=== PATIENT | male | born 1995 | race Caucasian/White ===

== ENCOUNTER 2018-11-14 22:12 | Emergency (ER) | payer OTHER ==
[2018-11-14 22:22] VITALS: BP 154/98
[2018-11-14] MEDS ORDERED: NORMAL SALINE 1000 ML 1,000 ML IV ONE (23:02)
[2018-11-14] MEDS ORDERED: ONDANSETRON HCL INJ/PF 4 MG/2 ML SDV IV ONE (23:02)
[2018-11-14] MEDS ORDERED: MORPHINE SULFATE 10 MG/ML INJ IV ONE (23:02)
--- NOTE | 2018-11-14 23:10 | ER Document Report ---
ED General - General Chief Complaint: Abdominal Pain Stated Complaint: STOMACH PAIN Time Seen by Provider: 11/14/18 22:57 Primary Care Provider: MOSES REES NP [Primary Care Provider] - 11/17/18 DANNY ALFORD MD [NO LOCAL MD] - Follow up as needed Notes: Patient is a pleasant 23-year-old male presents with complaint of left flank pain started approximately 2 hours ago. Some nausea and vomiting. Says pain stays in left flank. Nothing seems make it better or worse. No dysuria. No diarrhea. No fevers. He is never had any pain like this before. He is little hypertensive in triage. No previous history of kidney stones. No recent trauma or injuries. TRAVEL OUTSIDE OF THE [place] IN LAST 30 DAYS: No - Related Data Allergies/Adverse Reactions: No Known Allergies Allergy (Verified 11/14/18 23:17) Past Medical History - Social History Smoking Status: Never Smoker Frequency of alcohol use: None Drug Abuse: None Family History: Reviewed & Not Pertinent Psychiatric Medical History: Reports: Hx Depression - Immunizations Immunizations up to date: Yes Hx Diphtheria, Pertussis, Tetanus Vaccination: No Review of Systems - Review of Systems Notes: My Normal Review Basic REVIEW OF SYSTEMS: CONSTITUTIONAL : Denies fever, chills, or sweats. Denies recent illness. CARDIOVASCULAR: Denies chest pain. RESPIRATORY: Denies cough, cold, or chest congestion. Denies shortness of breath, difficulty breathing, or wheezing. GASTROINTESTINAL: Flank pain. Vomiting. No diarrhea. GENITOURINARY: Denies difficulty urinating, painful urination, burning, frequency, or blood in urine. MUSCULOSKELETAL: No pain in the back. SKIN: Denies rash or skin lesions. NEUROLOGICAL: Denies altered mental status or loss of consciousness. Denies headache. Denies weakness or paralysis or loss of use of either side. Denies problems with gait or speech. Denies sensory or motor loss. ALL OTHER SYSTEMS REVIEWED AND NEGATIVE. Physical Exam - Vital signs Vitals: Temp Pulse Resp BP 98.1 F 74 20 154/98 H 11/14/18 22:20 11/14/18 22:20 11/14/18 22:20 11/14/18 22:20 - Notes Notes: General Appearance: Well nourished, alert, cooperative, no acute distress, moderate obvious discomfort. She is holding left side. Vitals: reviewed, See vital signs table. Head: no swelling or tenderness to the head Eyes: PERRL, EOMI, Conjuctiva clear Mouth: No decreasd moisture Lungs: No wheezing, No rales, No rhonci, No accessory muscle use, good air exchange bilaterally. Heart: Normal rate, Regular rythm, No murmur, no rub Abdomen: Normal BS, soft, No rigidity, no reproducible tenderness palpation of the abdomen., No guarding, no rebound, no abdominal masses, no organomegaly Extremities: good pulses in all extremities, no swelling or tenderness in the extremities, no edema. Skin: warm, dry, appropriate color, no rash Neuro: speech clear, oriented x 3, normal affect, responds appropriately to questions. Course - Re-evaluation Re-evalutation: 11/14/18 23:09 I suspect patient most likely has a kidney stone based on location of pain and vomiting and sudden onset. He is hypertensive which I suspect is related to the pain. I think is less likely that he has aortic dissection or aortic injury especially since patient does not have any midline pain, no pain into his back, and his pain is not made worse with palpation of the abdomen. Will have patient undergo CT scan as well as give him medicines for pain and vomiting. 11/15/18 00:24 Patient's pain is currently under control. He is feeling much improved. I am awaiting the results of urinalysis before disposition. 11/15/18 00:58 Patient's pain is much improved. He looks well. I feel he is safe to be discharged home. He has no signs of infection in his urine. Informed him to return to ER immediately if he has intractable pain, intractable vomiting, or signs of infection his urine. I encouraged him to follow-up with his doctor this week to have recheck his kidney function. Also encouraged him to follow-up with urologist if he is not passed a stone or still having pain after 3 days. Patient agrees with plan will be discharged home. Dictation of this chart was performed using voice recognition software; therefore, there may be some unintended grammatical errors. - Vital Signs Vital signs: Temp Pulse Resp BP Pulse Ox 98.1 F 74 20 154/98 H 11/14/18 22:20 11/14/18 22:20 11/14/18 22:20 05/25/19 22:20 - Laboratory Result Diagrams: 11/14/18 23:28 11/14/18 23:28 Laboratory results interpreted by me: 11/14/18 11/14/18 11/15/18 23:28 23:28 00:00 WBC 17.5 H Seg Neutrophils % 79.1 H Absolute Neutrophils 13.9 H Creatinine 1.43 H Glucose 121 H Urine Protein 100 H Urine Blood LARGE H Discharge - Discharge Clinical Impression: Kidney stone on left side High blood pressure Qualifiers: Hypertension type: unspecified Qualified Code(s): I10 - Essential (primary) hypertension Condition: Good Disposition: HOME, SELF-CARE Additional Instructions: You have a kidney stone on CT scan. This is what is causing your left-sided pain as well as your vomiting. I have prescribed you a medication called [place]. Please be aware that [place] does have Tylenol (acetaminophen) in it. Please make sure you do not take more than 4000 mg of acetaminophen a day. Do not drive or care for children after you have taken this medication they will make you sleepy and sometimes impair judgment. I have also prescribed you a medication called Zofran. Zofran is a medicine that helps with nausea and vomiting. Currently you do not have signs of infection in your urine. Your blood work shows just mild renal insufficiency. This is likely from where the kidney is slightly obstructed from the stone. This typically improves with passage of the stone. We would suggest that you follow-up with your doctor within a week to have your kidney function rechecked to make sure that it continues to not worsen in any way. If you have not passed the stone or are still having pain after 3 days and he should call the urologist, Dr. Alford, on Friday to make a follow-up appointment. Please return to the ER immediately if you have intractable pain, recurrent vomiting, fevers, or feel that you are worsening any way. Your blood pressure is high today. This also is likely related to pain and stress from passing a stone. Please have your doctor recheck your blood pressure when you follow-up with her this coming week. Prescriptions: Hydrocodone/Acetaminophen [[place] 5-325 mg Tablet] 1 tab PO Q4 PRN #16 tablet PRN Reason: For Breakthrough Pain Ondansetron [Zofran Odt 4 mg Tablet] 1 tab PO Q4H PRN #15 tab.rapdis PRN Reason: For Nausea/Vomiting Referrals: MOSES REES, RUG SIZER [Primary Care Provider] - 11/17/18 DANNY ALFORD MD [NO LOCAL MD] - Follow up as needed
[2018-11-14 23:34] LABS: ABSOLUTE EOSINOPHILS # (AUTO) 0.1 10^3/uL (0.0-0.6); ABSOLUTE LYMPHOCYTES (AUTO) 2.5 10^3/uL (0.5-4.7); ABSOLUTE NEUT (AUTO) 13.9 10^3/uL (1.7-8.2); BASOPHILS % (AUTO) 0.3 % (0-2); EOSINOPHILS % (AUTO) 0.4 % (0-6); HEMATOCRIT 45.6 % (37.9-51.0); HEMOGLOBIN 15.3 g/dL (13.5-17.0); LYMPHOCYTES % (AUTO) 14.5 % (13-45); MEAN CORPUSCULAR HEMOGLOBIN 29.4 pg (27.0-33.4); MEAN CORPUSCULAR HGB CONC 33.7 g/dL (32.0-36.0); MEAN CORPUSCULAR VOLUME 87 fl (80-97); MONOCYTES % (AUTO) 5.7 % (3-13); PLATELET COUNT 215 10^3/uL (150-450); RED BLOOD COUNT 5.22 10^6/uL (4.35-5.55); RED CELL DISTRIBUTION WIDTH 12.7 % (11.5-14.0); SEGMENTED NEUTROPHILS % (AUTO) 79.1 % (42-78); TOTAL CELLS COUNTED % (AUTO) 100 %; WHITE BLOOD COUNT 17.5 10^3/uL (4.0-10.5)
--- NOTE | 2018-11-14 23:34 | RADIOLOGY REPORT (SQ) ---
CT ABDOMEN PELVIS WITHOUT IV CONTRAST HISTORY: Left flank pain. COMPARISON: None. TECHNIQUE: CT scan of the abdomen and pelvis was performed without IV contrast. This exam was performed according to our departmental dose-optimization program, which includes automated exposure control, adjustment of the mA and/or kV according to patient size and/or use of iterative reconstruction technique. FINDINGS: The lung bases are clear. No pleural or pericardial effusions. There is no hiatal hernia. Hepatic steatosis is present. The spleen, pancreas, and adrenal glands are normal. No CT evidence of gallstones. There is a 3 mm obstructing stone in the proximal left ureter with mild left sided periureteric stranding. No hydronephrosis. The right-sided collecting system is patent. No bladder stones are seen. No small bowel obstruction. The appendix is normal. There is no evidence of diverticulitis. No intraperitoneal free fluid or free air is identified. The aorta is normal caliber. No acute osseous findings are appreciated. No pathologic body wall hernia is seen. IMPRESSION: 3 mm obstructing stone in the proximal left ureter without hydronephrosis.
[2018-11-14] MEDS ORDERED: KETOROLAC TROMETHAMINE INJ/PF 30 MG/1 ML SDV IV ONE (23:44)
[2018-11-14 23:57] LABS: ANION GAP 14 (5-19); BLOOD UREA NITROGEN 19 mg/dL (7-20); CARBON DIOXIDE 23 mmol/L (22-30); CHLORIDE 105 mmol/L (98-107); GLUCOSE 121 mg/dL (75-110); SODIUM 141.9 mmol/L (137-145)
[2018-11-15 00:33] LABS: APPEARANCE,URINE CLOUDY; BILIRUBIN,URINE NEGATIVE (NEGATIVE); CALCIUM OXALATE CRYSTALS,URINE FEW /HPF; COLOR,URINE YELLOW; GLUCOSE, URINE NEGATIVE (NEGATIVE); KETONES,URINE NEGATIVE (NEGATIVE); LEUKOCYTE ESTERASE,URINE NEGATIVE (NEGATIVE); NITRITE,URINE NEGATIVE (NEGATIVE); PROTEIN,URINE 100 mg/dL (NEGATIVE); URINE SPECIFIC GRAVITY 1.033; UROBILINOGEN,URINE NEGATIVE mg/dL (<2.0)
[2018-11-15] MEDS ORDERED: HYDROCODONE/ACETAMINOPHEN 5-325 MG (6 TAB/ER DISP) PO PRN (00:58)
[2018-11-15] MEDS ORDERED: ONDANSETRON ODT 4 MG TAB (6 TAB/ER DISP) PO PRN (00:58)
== END 2018-11-15 01:18 | disposition home or self-care (01) ==
LOC: ER 22:12
DX: N20.0 Calculus of kidney (principal); I10 Essential (primary) hypertension; R10.9 Unspecified abdominal pain; R11.2 Nausea with vomiting, unspecified
CPT/HCPCS: 99284; 96361; 96374; 96375; 36415; 85025; 80048; 81001; 74176; J1885; J2270; J2405; J7030